=== PATIENT | female | born 1970 | race Caucasian/White ===

== ENCOUNTER 2018-02-05 14:25 | Emergency (ER) | payer SELFPAY ==
[~2018-02-05] VITALS: Ht 172.7 cm; Wt 65.0 kg
[2018-02-05] MEDS ORDERED: SODIUM CHLORIDE 0.9% 1,000 ML IV ONE (15:45)
[2018-02-05] MEDS ORDERED: MECLIZINE CHEWABLE 25 MG TAB ONE (15:56)
[2018-02-05] MEDS ORDERED: MECLIZINE CHEWABLE 25 MG TAB PO ONE (16:00)
[2018-02-05] MEDS ORDERED: SODIUM CHLORIDE 0.9% 1,000ML IVBOLUS ONE (16:00)
[2018-02-05] MEDS ORDERED: SODIUM CHLORIDE FLUSH 10ML SYR IVF ONE (16:00)
[2018-02-05] MEDS ORDERED: ONDANSETRON ODT 4 MG PO ONE (16:00)
[2018-02-05 16:22] LABS: BASOPHILS # (AUTO) 0.04 x10^3/uL (0-0.1); BASOPHILS % (AUTO) 1 % (0-1); EOSINOPHILS # (AUTO) 0.04 x10^3/uL (0-0.4); EOSINOPHILS % (AUTO) 1 % (1-7); LYMPHOCYTES # (AUTO) 1.98 x10^3/uL (1-3.4); LYMPHOCYTES % (AUTO) 32 % (22-44); MD NO; MEAN CORPUSCULAR HEMOGLOBIN 33.1 pg (27.0-34.8); MEAN CORPUSCULAR HGB CONC 33.4 g/dL (32.4-35.8); MEAN CORPUSCULAR VOLUME 99.2 fL (80-100); MEAN PLATELET VOLUME 7.3 fL (7.4-10.4); MONOCYTES # (AUTO) 0.41 x10^3/uL (0.2-0.8); MONOCYTES % (AUTO) 7 % (2-9); NEUTROPHILS # (AUTO) 3.82 x10^3/uL (1.8-6.8); NEUTROPHILS % (AUTO) 61 % (42-75); PLATELET COUNT 287 x10^3/uL (130-400); RED BLOOD COUNT 4.23 x10^6/uL (3.82-5.3); RED CELL DISTRIBUTION WIDTH 12.9 % (9.6-15.2)
[2018-02-05 16:26] LABS: ALBUMIN 3.4 g/dL (3.4-5.0); ANION GAP 7 mmol/L (5-15); CALCIUM 8.2 mg/dL (8.5-10.1); CHLORIDE 114 mmol/L (98-107)
[2018-02-05 16:31] LABS: ALANINE AMINOTRANSFERASE 22 U/L (12-78); ALKALINE PHOSPHATASE 50 U/L (45-117); BILIRUBIN,TOTAL 0.5 mg/dL (0.2-1.0); CREATININE 0.75 mg/dL (0.55-1.02); TOTAL PROTEIN 6.6 g/dL (6.4-8.2)
[2018-02-05 16:32] VITALS: BP 117/72
== END 2018-02-05 17:33 | disposition home or self-care (01) ==
LOC: ED 16:00
DX: H81.391 Other peripheral vertigo, right ear (principal); H81.11 Benign paroxysmal vertigo, right ear
CPT/HCPCS: 36415; 80053; 85025; 93005; 96360; 99285; J7030

== ENCOUNTER 2020-01-30 15:22 | Emergency (ER) | payer MEDICAID, OTHER ==
[~2020-01-30] VITALS: Ht 165.1 cm; Wt 86.9 kg
--- NOTE | 2020-01-30 15:49 | NUR ---
NAD, RR EQUAL AND UNLABORED. CHANGING TO GOWN.
[2020-01-30] MEDS ORDERED: ONDANSETRON 2MG/ML, 2ML ONE (16:25)
[2020-01-30] MEDS ORDERED: MORPHINE SULFATE 4 MG/ML, 1ML ONE ×2 (16:25→17:46)
[2020-01-30] MEDS: MORPHINE SULFATE 4 MG/ML, 1ML IVPush PRN ×2 (16:27→17:49)
[2020-01-30 16:30] LABS: MICROSCOPIC INDICATED
[2020-01-30] MEDS ORDERED: SODIUM CHLORIDE 0.9% 1,000ML IVBOLUS ONE (16:30)
[2020-01-30] MEDS ORDERED: ONDANSETRON 2MG/ML, 2ML IVPush ONE (16:30)
--- NOTE | 2020-01-30 16:30 | NUR ---
labs drawn and sent, medicated per order, ivf infusing, npo reinforced. call villatoro in reach, side rails up. cont pulse ox. will continue to monitor.
[2020-01-30 16:48] LABS: ALANINE AMINOTRANSFERASE 20 U/L (12-78); ALBUMIN 3.3 g/dL (3.4-5.0); ANION GAP 6 mmol/L (5-15); CALCIUM 8.8 mg/dL (8.5-10.1); CHLORIDE 109 mmol/L (98-107); CREATININE 0.87 mg/dL (0.55-1.02)
[2020-01-30 16:52] LABS: ALKALINE PHOSPHATASE 66 U/L (45-117); BILIRUBIN,TOTAL 0.2 mg/dL (0.2-1.0); TOTAL PROTEIN 6.7 g/dL (6.4-8.2)
[2020-01-30 16:55] LABS: BASOPHILS % (AUTO) 1 % (0-1); EOSINOPHILS % (AUTO) 1 % (1-7); LYMPHOCYTES % (AUTO) 21 % (22-44); MEAN CORPUSCULAR HEMOGLOBIN 32.4 pg (27.0-34.8); MEAN CORPUSCULAR HGB CONC 33.9 g/dL (32.4-35.8); MEAN PLATELET VOLUME 7.2 fL (7.4-10.4); MONOCYTES % (AUTO) 6 % (2-9); NEUTROPHILS % (AUTO) 71 % (42-75); PLATELET COUNT 303 x10^3/uL (130-400); RED BLOOD COUNT 4.46 x10^6/uL (3.82-5.3); RED CELL DISTRIBUTION WIDTH 13.1 % (9.6-15.2)
--- NOTE | 2020-01-30 17:02 | NUR ---
REPORTS DECREASE IN PAIN AFTER MEDS/ REPORTS PAIN HAS MOVED TO LOWER ABD. IVF INFUSING. VSS. NO N/V. WAITING FOR CT.
[2020-01-30 17:09] LABS: MD NO
[2020-01-30] MEDS ORDERED: OMNIPAQUE 350 MG/ML, 100ML BOTTLE ONE (17:40)
--- NOTE | 2020-01-30 17:54 | NUR ---
PT REPORTS PAIN INCREASING AGAIN 10/25. REMEDICATED, VSS. WILL CONTINUE TO MONITOR. AIDET PROVIDED.
[2020-01-30 18:18] VITALS: BP 122/71
== END 2020-01-30 18:36 | disposition home or self-care (01) ==
LOC: ED 15:59
DX: R10.12 Left upper quadrant pain (principal); R63.0 Anorexia; R11.0 Nausea; Z90.89 Acquired absence of other organs
CPT/HCPCS: 36415; 74177; 80053; 81001; 83690; 84703; 85025; 96361; 96374; 96375; 96376; 99285; J2270; J2405; J7030; Q9967